=== PATIENT | female | born 1960 | race African-American/Black ===

== ENCOUNTER 2017-03-27 07:58 | Day surgery (SDC) ==
[2017-03-27] MEDS ORDERED: LIDOCAINE 1% 20 ML MDV ID ONE (08:32)
[2017-03-27] MEDS ORDERED: DIPRIVAN 20 ML VIAL IVP ONE (10:40)
[2017-03-27] MEDS ORDERED: VERSED ONE (10:40)
[2017-03-27 12:08] VITALS: BP 117/71; TEMP 97.6
--- NOTE | 2017-03-28 11:41 | OP ---
INDICATIONS FOR PROCEDURE: 56-year-old female presents for a screening colonoscopy with a family history of colon polyps involving her sister. MEDICATIONS: SEE ANESTHESIA NOTES. PROCEDURE: COLONOSCOPY. REPORT: The risks, benefits, alternatives and limitations were discussed in detail with the patient. Informed consent was obtained. After adequate sedation was achieved, a digital rectal exam revealed good tone, no masses. There was a little bit of bright red blood present. The colonoscope was introduced into the rectum. I did identify hemorrhoids. I advanced the scope under direct visual guidance to the cecum. The cecum was identified by the appendiceal orifice and IC valve. I then slowly withdrew the scope in a circumferential manner examining the mucosa quite carefully. I looked on the proximal and distal side of folds and flexures as best as possible. I was able to retroflex the scope in the right colon as well as the left colon to increase visualization. The colonic mucosa was unremarkable its entire length other than a few diverticula in the sigmoid. On retroflex view of the anal canal revealed small internal hemorrhoids. There is a little bit of blood around the base of one of the hemorrhoids. No other abnormalities were noted. The prep was excellent. The withdrawal time was 9 minutes and 28 seconds. The patient tolerated the procedure well with stable vital signs and pulse oximetry throughout. IMPRESSION: 1. SMALL INTERNAL HEMORRHOIDS. 2. MILD DIVERTICULOSIS. RECOMMENDATIONS: 1. High fiber diet. 2. For her hemorrhoids I suggested an Annusol-Hydrocortisone suppository q.h.s. for five nights as needed for hemorrhoids. 3. Office visit as needed. 4. Consider screening colon examination again in 5 years based on her family history; sooner if signs or symptoms would indicate otherwise. CC: DR. CHAVA KIMBROUGH
== END 2017-03-27 12:14 | disposition home or self-care (01) ==
LOC: SURG 07:58
PROVIDERS: ATTEND Internal Medicine Gastroenterology
DX: Z12.11 Encounter for screening for malignant neoplasm of colon (principal); Z83.71 Family history of colonic polyps; K57.30 Diverticulosis of large intestine without perforation or abscess without bleeding; K64.8 Other hemorrhoids